=== PATIENT | male | born 1960 | race Caucasian/White ===

== ENCOUNTER → 2023-09-09 07:38 | Outpatient (REF) | payer OTHER, MEDICARE, SELFPAY | LOC: RAD 07:38 | PROVIDERS: ATTENDING PHYSICIAN Surgery; FAMILY PHYSICIAN Family Medicine | DX: D36.9 Benign neoplasm, unspecified site (principal); K43.2 Incisional hernia without obstruction or gangrene | CPT/HCPCS: 74177; Q9967 ==

== ENCOUNTER 2023-10-15 11:21 | Day surgery (SDC) | payer OTHER, MEDICARE, SELFPAY ==
[2023-10-01 07:33] VITALS: BMI 27.1
[2023-10-01 08:52] LABS: Hematocrit 32.4 % (39.0-52.0); Hemoglobin 11.1 g/dL (13.0-18.0); Mean Corp Hgb Conc. 34.3 g/dL (33.0-37.0); Mean Corpuscular Hgb 31.1 pg (27.0-31.0); Mean Corpuscular Volume 90.8 fL (80.0-94.0); Mean Platelet Volume 10.9 fL (7.4-10.4); Platelet Count 256 10^3/uL (130-400); Red Blood Cell Count 3.57 10^6/uL (4.70-6.10); White Blood Cell Count 5.9 10^3/uL (4.8-10.8)
[2023-10-01 09:29] LABS: ALT (SGPT) < 10 U/L (0-50); AST (SGOT) 19 U/L (17-59); Albumin 4.3 g/dl (3.5-5.0); Alkaline Phosphatase 45 U/L (38-126); Blood Urea Nitrogen 22 mg/dl (9-20); Calcium 9.6 mg/dl (8.4-10.2); Carbon Dioxide 22 mmol/L (22-30); Chloride 107 mmol/L (98-107); Estimated Creatinine Clearance 83 ml/min; Glucose 111 mg/dl (70-99); Potassium 4.7 mmol/L (3.5-5.1); Sodium 138 mmol/L (135-145); Total Bilirubin 0.6 mg/dl (0.2-1.3); Total Protein 6.2 g/dl (6.3-8.2); eGFR > 60.00
[2023-10-15] VITALS (12 sets, daily range): BP systolic 137–186; BP diastolic 72–100; BMI 27.1
[2023-10-15] MEDS: NORMOSOL-R 1000 IV (11:52)
[2023-10-15] MEDS: TYLENOL 1000 MG PO (12:00)
--- NOTE | 2023-10-15 12:22 | HP.FOC2 ---
Focused History & Physical
Chief Complaint
HPI:
Chief Complaint: Tubular adenomatous polyp at base of appendix
HPI / Indication for Planned Procedure: 63-year-old male who recently underwent screening colonoscopy identifying a 12 mm polyp at the base of the appendix biopsied and identified as a tubular adenoma. Area was not amenable to endoscopic resection
he was therefore referred for surgical evaluation for anticipated appendectomy and partial cecectomy.
Relevant Past Medical History: Other (History of liver transplant and [facility] in 2021, GERD/Farris's, hypertension)
Relevant Social History: Negative
Relevant Family History: Negative
Relevant Past Surgical History: Positive for (Liver transplant, incisional herniorrhaphy)
Review of Systems
Review of Pertinent Systems: All Systems Negative
Medication
See Medication form for detailed medications: Yes
Medication List (including Herbals & OTC):
Omeprazole 20 mg PO DAILY 01/23/12
cholecalciferol (vitamin D3) 125 mcg (5,000 unit) tablet (Vitamin D3) 1 mcg 4-8XD 10/04/23
mycophenolate mofetil 250 mg capsule 750 mg PO BID 10/04/23
nifedipine 60 mg tablet,extended release 60 mg PO DAILY 10/04/23
tacrolimus 1 mg capsule, immediate-release 4 mg PO Q12H 10/04/23
aspirin 81 mg tablet,delayed release 81 mg PO DAILY 10/14/23
Slow-Mag 2 tab PO QID 10/15/23
Medications Reviewed: Yes
Allergies and Reactions
Patient has Allergies: Yes
Noted Allergies and Reactions:
Allergy/AdvReac Type Severity Reaction Status Date / Time
rofecoxib [From Vioxx] Allergy Mild Vomiting Verified 10/04/23 09:13
Pertinent Physical Exam
All Other Systems: Negative
Head/Neck: Normal
Lungs: Normal
Heart: Normal
Abdomen: Other (Multiple abdominal wall surgical scars and right lateral abdominal wall recurrent incisional hernia)
Extremities: Normal
Neurological: Normal
Diagnosis / Assessment
63-year-old male presenting for scheduled appendectomy/partial cecectomy with preservation of the ileocecal valve for management of an adenomatous polyp identified at the base of the appendix on recent screening colonoscopy
Plan / Procedure
Laparoscopic appendectomy with partial cecectomy
Anesthesia/Sedation to be done by Anesthesia Provider: Yes
--- NOTE | 2023-10-15 12:25 | W.SUR.PREOP ---
Pre-Operative Surgical Note
-
I have examined this patient prior to the performance of the scheduled procedure.
The patient's condition is unchanged from the time of the current History and
Physical and the patient is able to undergo the scheduled procedure.
[2023-10-15] MEDS: ZOFRAN 4 MG IV (14:30)
--- NOTE | 2023-10-15 14:33 | W.IMMPOSTOP ---
Addendum entered and electronically signed by Jair Johansen MD 10/15/23 14:42:
#[id number]
Original Note:
Surgical Immed Post Op Note
-
Primary Surgeon: Haily
Assisting Surgeon: None
Pre-op Diagnosis: Adenomatous polyp at base of appendix
Post-op Diagnosis: Adenomatous polyp at base of appendix
Procedure Performed: Laparoscopic appendectomy with partial cecectomy (preservation of ileocecal valve)
Anesthesia Type: GETA +0.25% Marcaine
Specimen / Cultures: Appendix with cuff of cecum
Estimated Blood Loss: 4 mL
Complications: None immediate
Operative Findings: Elongated but otherwise normal-appearing appendix. No visualized serosal abnormalities or palpable mass throughout appendix or at base. Appendectomy completed with approximately 2 cm cuff of cecum. Ileocecal valve preserved.
Endo VELASQUEZ 60 and 45 mm stapler loads. Mesoappendix mobilized and divided with harmonic.
There were no adhesions related to patient's history of liver transplantation that affected this operative procedure.
[2023-10-15] MEDS: SUBLIMAZE 50 MCG IV (14:34)
[2023-10-15] MEDS: COMPAZINE 5 MG IV (14:46)
== END 2023-10-15 16:02 | disposition home or self-care (01) ==
LOC: SDS 11:21
PROVIDERS: ATTENDING PHYSICIAN Surgery; FAMILY PHYSICIAN Family Medicine; OTHER PHYSICIAN Physician Assistant
DX: D12.1 Benign neoplasm of appendix (principal)
CPT/HCPCS: 44970; 88307; 36415; 80053; 85027; 93005; J1335